=== PATIENT | female | born 1965 ===

== ENCOUNTER 2023-12-24 12:29 | Inpatient (IN) | payer BC ==
[~2023-12-24] VITALS: Ht 162.6 cm; Wt 69.8 kg
[2023-12-24 13:00] VITALS: BP_SYST 113
[2023-12-24] MEDS ORDERED: Sennosides/Docusate 8.6-50 MG TAB PO PRN (16:00)
[2023-12-24] MEDS ORDERED: Docusate Sodium 100 MG CAP PO PRN (16:00)
[2023-12-24] MEDS ORDERED: Polyethylene Glycol 3350 17 GM PDS PO PRN (16:00)
[2023-12-24] MEDS ORDERED: Acetaminophen 325 MG TAB PO PRN (16:00)
[2023-12-24] MEDS ORDERED: Naloxone 0.4 MG/ML VIAL IV PRN (16:00)
[2023-12-24 16:03] VITALS: BP 113/72; PULSE 86; TEMP 98.1
--- NOTE | 2023-12-24 16:42 | NUR ---
PATIENT BROUGHT TO FLOOR AT APPROXIMATELY 1540. PATIENT REPORTS MILD PAIN, DENIES NEED FOR PAIN MEDICATION AT THIS TIME. VS TAKEN. INTAKE PERFORMED. SKIN ASSESSMENT PERFORMED. PATIENT ORIENTED TO ROOM/HOSPITAL POLICIES. WAITING ON ORDERS. NO FURTHER NEEDS. CALL LIGHT IN REACH. BED ALARM ON.
[2023-12-24] MEDS ORDERED: ELIQUIS 5MG PO (16:54)
[2023-12-24] MEDS ORDERED: QUALITY CHOI500 U/GM TOP (16:54)
[2023-12-24] MEDS ORDERED: VANTIN 200200 MG/TAB PO (16:55)
[2023-12-24] MEDS ORDERED: FLEXERIL5 MG PO (16:56)
[2023-12-24] MEDS ORDERED: PEPCID 20MG TAB20 MG (16:57)
[2023-12-24] MEDS ORDERED: DOXYCYCLINE HY100 MG PO (16:57)
[2023-12-24] MEDS ORDERED: PEPCID 20MG TAB20 MG PO (16:57)
[2023-12-24] MEDS ORDERED: NICODERM C21 MG/PATC TD (16:58)
[2023-12-24] MEDS ORDERED: NEURONTIN300 MG/CAP PO (16:58)
[2023-12-24] MEDS ORDERED: CELEXA40 MG PO (16:59)
[2023-12-24] MEDS ORDERED: MULTI VITAMINS1 TAB PO (17:00)
[2023-12-24] MEDS ORDERED: SYNTHROID0.1 MG/TAB PO (17:00)
[2023-12-24] MEDS ORDERED: Nicotine 21 MG DAILY PATCH TD PRN (17:30)
[2023-12-24] MEDS ORDERED: traMADol 50 MG TAB PO PRN (17:45)
[2023-12-24] MEDS ORDERED: oxyCODONE 5 MG TAB PO PRN (17:45)
[2023-12-24] MEDS ORDERED: Amoxicillin/Clavulanate K+ 875/125 MG TAB PO SCH (17:45)
[2023-12-24 18:00] VITALS: BP 120/62; PULSE 89; TEMP 98.2
--- NOTE | 2023-12-24 19:26 | NUR ---
RECEIVED CHANGE OF SHIFT REPORT FROM DAY SHIFT NURSE. PATIENT RESTING IN BED WITH CALL LIGHT IN REACH. NO NEEDS REPORTED AT TIME OF REPORT.
--- NOTE | 2023-12-24 20:00 | NUR ---
NWB TO RLE WHEN AMBULATING WITH GB AND FWW WITH NO REPORTED PROBLEMS OR OBSERVED DIFFICULTIES. PATIENT TO GET IN AND OUT OF BED WITH MINIMAL ASSIST X1. DENIES CHEST PAIN/SHORTNESS OF BREATHE/NAUSEA AT THIS TIME. DENIES NUMBNESS/TINGLING TO EXTREMITIES AT THIS TIME. SEE MAR FOR PAIN MEDS GIVEN WHEN REQUESTED BY PATIENT.
[2023-12-24] MEDS ORDERED: Cyclobenzaprine 10 MG TAB PO SCH (21:00)
[2023-12-24] MEDS ORDERED: Bacitracin Topical Oint 30 GM TUBE TOP SCH (21:00)
[2023-12-24] MEDS ORDERED: Doxycycline Monohydrate 100 MG CAP PO SCH (21:00)
[2023-12-24] MEDS ORDERED: Gabapentin 300 MG CAP PO SCH (21:00)
[2023-12-24] MEDS ORDERED: Famotidine 20 MG TAB PO SCH (21:00)
[2023-12-24] MEDS ORDERED: Apixaban 5 MG TABLET PO SCH (21:00)
[2023-12-25 05:47] VITALS: BP 122/70; PULSE 92; TEMP 98.4
--- NOTE | 2023-12-25 07:17 | NUR ---
CHANGE OF SHIFT REPORT GIVEN TO DAY SHIFT NURSEYOU.
--- NOTE | 2023-12-25 08:00 | NUR ---
pt a&ox4 resting in bed. assisted to bathroom. gait steady with walker, NWB to RLE. pt denies pain in right leg. reports some cramping in abdomen, had some relief after small bowel movement. dressing to right hip is cdi. no drainage from abrasions. vss and assessment complete. pt denies needs at this time. therapy in to assist with shower this morning.
[2023-12-25] MEDS ORDERED: Citalopram 20 MG TAB PO SCH (09:00)
[2023-12-25] MEDS ORDERED: Multivitamin TAB PO SCH (09:00)
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
[2023-12-25 17:05] VITALS: BP 108/68; PULSE 90; TEMP 98
--- NOTE | 2023-12-25 20:10 | NUR ---
PT A&O X4 LAYING IN BED. VSS. PT AMBULATED TO RESTROOM & BACK WITH SBA & NWB TO RLE. PT REPORTING PAIN 4/10 TO BLE "FROM WALKING A LOT TODAY", GAVE PRN TRAMADOL WITH HS MEDS PER JUL. RLE WITH GAUZE DRSG & ACEWRAP CDI. RIGHT UPPER THIGH WITH GAUZE DRSG CDI & X2 SCABS FLOOR COVERING CONTRACTOR. PT DENYING FURTHER NEEDS. CALL LIGHT IN REACH
[2023-12-26 05:16] VITALS: BP 110/69; PULSE 89; TEMP 98.1
--- NOTE | 2023-12-26 06:22 | NUR ---
pt resting in bed with unlabored resp. up to restroom throughout the night with sba. denying pain or further needs at this time. call light in reach
--- NOTE | 2023-12-26 08:00 | NUR ---
Pt. sitting up in bed eating breakfast. Pt. is A&OX3, assessment complete. Pt. denies pain or other needs, call light within reach.
--- NOTE | 2023-12-26 12:48 | NUR ---
SW attended clinical team conference earlier this morning. Discussed patient's progress and discharge needs. Patient is scheduled for discharge on 12/31 and will require a walker. Discharge plan: Home with HH vs OP therapy and walker
--- NOTE | 2023-12-26 15:38 | NUR ---
MAGALIS faxed [facility] referral. MAGALIS emailed [facility] walker order. Discharge Plan: re-eval
[2023-12-26 18:58] VITALS: BP 111/67; PULSE 96; TEMP 98
--- NOTE | 2023-12-26 19:00 | NUR ---
RECEIVED CHANGE OF SHIFT REPORT FROM DAY SHIFT NURSE.
--- NOTE | 2023-12-26 20:00 | NUR ---
DECREASED ROM/STRENGTH TO RLE WITH INTACT LUIS FERNANDO DRESSING AND X2 RIGHT THIGH INCISIONS X2 INTACT/NONBLEEDING. OBSERVED LLE BRUISING AND SWELLING DOWN FROM EARLIER ASSESSMENT DISCOLORATIONS FROM BRUISING CONTINUES BUT APPEARS DARKENED HEALING PROGRESSES. DENIES CHEST PAIN/SHORTNESS OF BREATH AND NAUSEA CURRENTLY.
[2023-12-27 05:07] VITALS: BP 102/66; PULSE 94; TEMP 97.8
[2023-12-27 07:05] LABS: BASO % 0.6 % (0.0-2.0); EOS # 0.3 K/mm3 (0.0-0.7); EOS % 4.7 % (0.0-4.0); GRAN # 4.1 K/mm3 (1.4-6.5); GRAN % 60.1 % (42.2-75.2); LYMPH # 1.3 K/mm3 (1.2-3.4); LYMPH % 18.5 % (20.0-51.0); MEAN CELL VOLUME 101 fl (80.0-100.0); MEAN CORPUSCULAR HGB CONC 31 g/dl (33.0-37.0); MEAN PLATELET VOLUME 9.7 fl (7.4-10.4); MONO # 1.1 K/mm3 (0.1-0.6); MONO % 15.7 % (1.7-9.3); PLATELET COUNT 336 K/mm3 (130-400); RED BLOOD COUNT 2.82 M/mm3 (4.10-5.30); REDCELL DISTRIBUTION WIDTH-CV 18.2 % (11.5-14.5)
[2023-12-27 07:07] LABS: HEMATOCRIT 28.5 % (37.0-47.0); HEMOGLOBIN 8.9 g/dl (12.5-16.0); MEAN CORPUSCULAR HEMOGLOBIN 32 pg (27-31)
[2023-12-27 07:13] LABS: CALCIUM 9.7 mg/dL (8.4-10.2); CREATININE, serum 0.7 mg/dL (0.57-1.11); POTASSIUM 4.7 mEq/L (3.5-4.5)
--- NOTE | 2023-12-27 07:18 | NUR ---
CHANGE OF SHIFT REPORT GIVEN TO DAY SHIFT NURSEYOU. PATIENT DENIES ANY NEEDS OR CONCERN THIS MORNING PRIOR TO SHIFT CHANGE. EXIT ALARMS ON WHEN UP IN CHAIR OR IN BED DURING THE SHIFT.
--- NOTE | 2023-12-27 08:15 | NUR ---
pt a&ox4 resting in bed. meds given and assessment complete. pt rates pain a 05/16. dressings and abrasions are all cdi. pt tolerating diet. denies needs at this time. call light in reach. fall precautions in place.
--- NOTE | 2023-12-27 14:57 | NUR ---
farmworker fryer farm spoke with [facility] who reports they could meet pt's needs, but have concerns relating to pt's insurance and how it is under her who and they believe it will end in a week. They inquired about if pt will be on COBRA. They report pt is employed through them, but has not met the criteria to obtain health insurance there. MAGALIS faxed updates. MAGALIS received BC[employer] CM Luba [phone] from [facility] [employer] to contact regarding insurance. MAGALIS spoke with Luba who reports she is not seeing a cancellation date on her end, but she will contact their customer service team internally to check. She reports that pt can contact her 's employer to request COBRA coverage. MAGALIS left a voicemail to financial assistance advisor, Estee to discuss COBRA options with pt. Discharge Plan: home with
--- NOTE | 2023-12-27 16:20 | NUR ---
MAGALIS received a call from [facility] [employer] who reports pt is eligible for COBRA insurance and also, to date, pt's group has not informed them of his passing; therefore his plan has no end date. MAGALIS spoke with financial foundations representative, Estee who reports she has limited knowledge on COBRA and will follow-up with her team to see what they reccomend.
[2023-12-27 17:46] VITALS: BP 108/66; PULSE 101; TEMP 98.2
--- NOTE | 2023-12-27 19:35 | NUR ---
PATIENT LAYING IN BED, ALERT AND ORIENTED, VSS, NO ACUTE EVENTS. DRESSING CDI. CALL LIGHT WITHIN REACH. FALL PRECAUTIONS IN PLACE.
[2023-12-28 05:20] VITALS: BP 99/62; PULSE 94; TEMP 97.9
--- NOTE | 2023-12-28 09:06 | NUR ---
PT SITTING IN BED EATING BREAKFAST. STATES SHE SLEPT OKAY. SHE IS ALERT AND ORIETNED. MEDICATIONS ADMINISTERED PER EMAR. BREAKFAST WAS FINISHED. STATES THAT SHE WOULD LIKE THE NECK DRESSING OFF IT IS "IRRITATING TO HER SKIN AND IS ITCHY". I TOLD HER THAT I WOULD NOTIFY THE MD THIS MORNING ABOUT NECK BANDAGE. CALL LIGHT WITHIN REACH, ALL NEEDS MET AT THIS TIME.
[2023-12-28 17:33] VITALS: BP 111/69; PULSE 99; TEMP 97.8
--- NOTE | 2023-12-28 17:54 | NUR ---
soil sort worker was notified the family was here for a family meeting. MAGALIS attended the meeting. Patient has made progress and is scheduled to discharge on Sunday with home health. Patient will be staying with her sister in [place]. MAGALIS will follow up with home health options. MAGALIS met with patient and provided [email or web address] list of options for home health. MAGALIS will follow up on Sunday for choice. Patient understood and had no questions or concerns.
--- NOTE | 2023-12-28 20:45 | NUR ---
Pt. resting in bed w/ eyes closed upon entry. Administered scheduled meds per JUL. Shift assessment complete. Pt. has scattered bruising to upper and lower extremeties. RLE is dressed w/ xeroform, gauze, ABD, and LUIS FERNANDO wrap; R hip is dressed w/ gauze and tegaderms. Dressings CDI. No further outstanding findings. Pt. denies pain at this time. No complaints or requests. Call light in reach.
[2023-12-29 06:00] VITALS: BP 121/78; PULSE 91; TEMP 98.1
--- NOTE | 2023-12-29 06:18 | NUR ---
Pt. had very uneventful evening. Rested in bed w/ eyes closed, respirations even and unlabored through the night. Denied complaints or requests when asked. Pt. still resting in bed this morning. Call light in reach.
--- NOTE | 2023-12-29 08:00 | NUR ---
PT A&O X4. NO C/O PAIN OR N/V. DRESSING ON R LEG IS CLEAN, DRY, AND INTACT. PATIENT EATING BREAKFAST CURRENTLY. PATIENT TRANSFERS AND AMBULATES WITH ASSIST X1 WITH WALKER AND GAIT BELT. SHIFT ASSESSMENT COMPLETE AND MORNING MEDICATIONS ADMINISTERED. NO FURTHER NEEDS AT THIS TIME. CALL LIGHT WITHIN REACH.
[2023-12-29 15:32] LABS: BASO % 0.5 % (0.0-2.0); EOS # 0.2 K/mm3 (0.0-0.7); EOS % 2.2 % (0.0-4.0); GRAN # 5.1 K/mm3 (1.4-6.5); GRAN % 64.4 % (42.2-75.2); LYMPH # 1.3 K/mm3 (1.2-3.4); MEAN CELL VOLUME 99 fl (80.0-100.0); MEAN CORPUSCULAR HGB CONC 31 g/dl (33.0-37.0); MEAN PLATELET VOLUME 9.3 fl (7.4-10.4); MONO # 1.2 K/mm3 (0.1-0.6); MONO % 15.5 % (1.7-9.3); PLATELET COUNT 291 K/mm3 (130-400); RED BLOOD COUNT 2.98 M/mm3 (4.10-5.30); REDCELL DISTRIBUTION WIDTH-CV 17.3 % (11.5-14.5)
[2023-12-29 15:33] LABS: HEMATOCRIT 29.4 % (37.0-47.0); HEMOGLOBIN 9.2 g/dl (12.5-16.0); MEAN CORPUSCULAR HEMOGLOBIN 31 pg (27-31)
[2023-12-29 15:45] LABS: CALCIUM 8.8 mg/dL (8.4-10.2); CREATININE, serum 0.67 mg/dL (0.57-1.11); POTASSIUM 3.8 mEq/L (3.5-4.5)
[2023-12-29 16:37] VITALS: BP 117/69; PULSE 92; TEMP 98.6
--- NOTE | 2023-12-29 22:05 | NUR ---
Pt. requested analgesia. Rates pain 10/14 and described it as a "pins & needles feeling" to her Rt knee. Administered PRN Roxicodone and scheduled meds per JUL. During this time pt. inquired about changing the dressing to her Rt leg. Pt. c/o LUIS FERNANDO bandage becoming loose and stated there was "black stuff" on the dressing. This nurse assessed dressings. "Black stuff" described by pt. appeared to be a scant amount of old bloody drainage to inside of proximal ABD pad. However, upon further assessment, noted green purulent drainage that had saturated distal ABD pad. Drainage does not appear recent. Dressings changed using xeroform, 4x4 gauze, ABD pads, and LUIS FERNANDO wrap. Shift assessment complete at this time. Scattered bruising to BUE and BLE. Edema to RLE pitting +1. Multiple incisions to Rt leg. Edges well approximated. Dressings CDI. No further outstanding findings. Pt. resting in bed w/ call light in reach. No request at this time. Assisted pt. to restroom. Pt. ambulating well w/ SBA, walker, and gait belt. No assitance required transfering to and from toilet. Pt. voiding clear yellow urine.
[2023-12-30 05:22] VITALS: BP 104/66; PULSE 88; TEMP 97.8
--- NOTE | 2023-12-30 06:12 | NUR ---
Pt. resting in bed w/ eyes closed. Scheduled meds administered per JUL. Pt. denies complaints or requests this morning.
--- NOTE | 2023-12-30 08:34 | NUR ---
Pt A&Ox4. C/o mild pain to R knee but denies pain intervention at this time. Dressings to RLE clean, dry, and intact. No c/o n/v. Patient ambulates with assist x1 with walker and gait belt. NWB on RLE. Patient currently eating breakfast. Shift assessment complete and medications administered. No further needs at this time. Call light within reach.
[2023-12-30 17:55] VITALS: BP 113/69; PULSE 95; TEMP 98.1
--- NOTE | 2023-12-30 23:49 | NUR ---
PT SITTING IN BED. ALERT AND ORIENTED. ALL CARES COMPLETED. NO COMPLAINTS AT THIS TIME. ASSESSMENT COMPLETED EARLIER. MEDICATIONS ADMINISTERED PER EMAR.
[2023-12-31 05:30] VITALS: BP 104/65; PULSE 82; TEMP 98
--- NOTE | 2023-12-31 06:56 | NUR ---
REPORT GIVEN TO NURSE.
--- NOTE | 2023-12-31 07:30 | NUR ---
Pt a&ox4. VSS. C/o pain in R knee and R great toe this morning. PRN pain medications given to pt. Pt up with gait belt and walker with assist x1. Pt is NWB on RLE. Dressings to RLE are CDI. Shift assessment complete and morning meds administered. No further needs at this time, call light within reach.
--- NOTE | 2023-12-31 17:09 | NUR ---
neon sign worker met with patient whom confirmed she wants to keep [facility]. Patient stated she would need a walker and wheelchair afterall since her wheelchair at home is not in good shape. MAGALIS secure emailed referral to [facility]. [facility] requested patient's insurance card. MAGALIS obtained copy of insurance card and sent to [facility]. MAGALIS confirmed patient is able to get the walker and wheelchair via her insurance. Patient will be renting the wheelchair and the walker will be hers. MAGALIS notified patient and her family members. MAGALIS faxed clinical updates to [facility]. Discharge plan: Home with [facility]
[2023-12-31 17:43] VITALS: BP 111/66; PULSE 93; TEMP 98.2
--- NOTE | 2023-12-31 22:43 | NUR ---
PT SITTING IN BED. ASSESSMENT COMPLETED EARLIER. MEDICATIONS ADMINISTERED PER EMAR. ADLS COMPLETED BEFORE BED. NO COMPLAINTS AT THIS TIME. CALL LIGHT IS WITHIN REACH
--- NOTE | 2024-01-01 00:54 | NUR ---
SO FAR THE NIGHT HAS BEEN UNEVENTFUL. PT HAS WOKEN UP ONCE TO GO TO THE BATHROOM AND VOID. SHE HAS NO COMPLAINTS OF PAIN. NO OTHER COMPLAINTS AT THIS TIME. BED ALARMS ON AND CALL LIGHT IS WITHIN REACH.
[2024-01-01 05:27] VITALS: BP 109/65; PULSE 88; TEMP 98.1
--- NOTE | 2024-01-01 06:41 | NUR ---
MEDICATIONS ADMINISTERED PER EMAR. PT LAYING IN BED. NO CONCERNS AT THIS TIME.
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
[2024-01-01] MEDS ORDERED: FLEXERIL5 MG PO (09:30)
[2024-01-01] MEDS ORDERED: ELIQUIS 5MG PO (09:30)
[2024-01-01] MEDS ORDERED: NICODERM C21 MG/PATC TD (09:30)
[2024-01-01] MEDS ORDERED: TYLENOL 325MG325 MG PO (09:31)
[2024-01-01] MEDS ORDERED: NEURONTIN300 MG/CAP PO (09:32)
[2024-01-01] MEDS ORDERED: PEPCID 20MG TAB20 MG PO (09:34)
[2024-01-01] MEDS ORDERED: ROXICODONE 55 MG/TAB PO (09:35)
--- NOTE | 2024-01-01 12:07 | NUR ---
DISCHARGE INSTRUCTIONS PROVIDED. PATIENT EDUCATION GIVEN. FOLLOW UP APPOINTMENTS DISCUSSED. DRESSING CHANGED. MEDICATIONS REVIEWED. PATIENT DENIES ANY QUESTIONS OR CONCERNS. PATIENT ESCORTED OUT VIA WHEELCHAIR.
--- NOTE | 2024-01-01 13:33 | NUR ---
derrick worker well service faxed clinical updates and discharge orders to [facility]. SW was notified patient's walker and wheelchair were delivered. Discharge plan: Home with [facility]
== END 2024-01-01 12:09 | disposition home health service (06) | DRG 560 ==
PROVIDERS: Hospitalist; ADMIT Physical Medicine & Rehabilitation Sports Medicine
DX: S72.91XE Unspecified fracture of right femur, subsequent encounter for open fracture type I or II with routine healing (principal); D62 Acute posthemorrhagic anemia; L03.115 Cellulitis of right lower limb; I82.411 Acute embolism and thrombosis of right femoral vein; S82.832D Other fracture of upper and lower end of left fibula, subsequent encounter for closed fracture with routine healing; S92.354D Nondisplaced fracture of fifth metatarsal bone, right foot, subsequent encounter for fracture with routine healing; S22.41XD Multiple fractures of ribs, right side, subsequent encounter for fracture with routine healing; V28 Motorcycle rider injured in noncollision transport accident; S35.51 Injury of iliac artery or vein; Y92.410 Unspecified street and highway as the place of occurrence of the external cause; Z95.828 Presence of other vascular implants and grafts; S02.2XXD Fracture of nasal bones, subsequent encounter for fracture with routine healing; F43.21 Adjustment disorder with depressed mood; S62.616D Displaced fracture of proximal phalanx of right little finger, subsequent encounter for fracture with routine healing; S62.610D Displaced fracture of proximal phalanx of right index finger, subsequent encounter for fracture with routine healing; E03.9 Hypothyroidism, unspecified; Z47.2 Encounter for removal of internal fixation device; E27.9 Disorder of adrenal gland, unspecified; E04.1 Nontoxic single thyroid nodule; Z79.899 Other long term (current) drug therapy; Z74.09 Other reduced mobility; R26.89 Other abnormalities of gait and mobility; R19.7 Diarrhea, unspecified; Z72.0 Tobacco use